=== PATIENT | female | born 1945 | race Caucasian/White ===

== ENCOUNTER 2019-05-25 16:17 | Emergency (ER) | payer MEDICARE ==
--- NOTE | 2019-05-25 17:11 | CT ---
CT BRAIN NONCONTRAST: DATE: 05/25/2019 HISTORY: 73-year-old female status post acute head trauma FINDINGS: There is no evidence of acute intra-axial or extra-axial hemorrhage. There is no midline shift or any other mass effect. There is no extra-axial fluid collection. There is no evidence of obstructive hydrocephalus. Calvarium is intact. IMPRESSION: 1. No acute intracranial findings. 2. Small right frontal scalp contusion. 3. 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 4. Severe osteoarthrosis of right temporomandibular joint.
--- NOTE | 2019-05-25 17:26 | CT ---
CT CERVICAL SPINE: 05/25/19 INDICATIONS: Fall with injury to neck. Postoperative changes noted in the cervical spine. Anterior plate and screws transfix C3, C4, C5 and C6. Interbody implant at C3-4. Interbody fusion at C4-5 and C5-6. Loss of disc space and degenerativ e change at C6-7. Posterior pedicle screws and rods transfix C2 through C6. Images through the lung apices reveal confluent infiltrate in the left lung apex worrisome for pneum onia. Recommend clinical correlation and follow-up. IMPRESSION: 1. Postoperative and degenerative changes of the cervical spine as described. No evidence of cer vical spine fracture. 2. Images through the lung apices show areas of confluent density in the left lung apex worrisom e for confluent pneumonia. Recommend clinical correlation. POS: [facility]
[2019-05-25] MEDS ORDERED: Ibuprofen 200 MG TAB ONE (17:54)
== END 2019-05-25 18:01 | disposition home or self-care (01) ==
LOC: SCSER 16:17
DX: S00.83XA Contusion of other part of head, initial encounter (principal); J44.9 Chronic obstructive pulmonary disease, unspecified; W18.11XA Fall from or off toilet without subsequent striking against object, initial encounter
CPT/HCPCS: 70450; 72125

== ENCOUNTER 2023-05-30 13:13 | Outpatient (CLI) | payer MEDICARE | END 2023-05-30 13:14 | disposition home or self-care (01) | LOC: SCSRAD 13:13 | PROVIDERS: ATTEND Family Medicine | DX: R05.9 Cough, unspecified (principal); R91.1 Solitary pulmonary nodule; J98.4 Other disorders of lung | CPT/HCPCS: 71046 ==

== ENCOUNTER 2023-06-09 14:31 | Outpatient (CLI) | payer MEDICARE | END 2023-06-09 14:32 | disposition home or self-care (01) | LOC: SCSRAD 14:31 | PROVIDERS: ATTEND Nurse Practitioner Family | DX: R05.3 Chronic cough (principal); R91.1 Solitary pulmonary nodule | CPT/HCPCS: 71046 ==

== ENCOUNTER 2023-06-12 14:09 | Inpatient (IN) | payer MEDICARE ==
[~2023-06-12 14:09] MED LIST: Iopamidol 370 76% 100 ML VIAL ONE
[2023-06-12 14:41] LABS: #Monocytes 1.7 thou/uL (0.11-0.59); #Neutrophils 16.7 thou/uL (1.40-6.50); %Basophils 0.2 % (0.0-1.0); %Lymphocytes 8.3 % (21.0-51.0); %Monocytes 8.4 % (0.0-10.0); %Neutrophils 82.6 % (42.0-75.0); Hematocrit 22.6 % (36.0-47.0); Mean Corpuscular Hemoglobin 26.9 pg (27.0-31.0); Mean Corpuscular Volume 86.9 fl (78.0-98.0); Mean Platelet Volume 9.4 fL (7.4-10.4); Platelet Count 441 10x3/uL (130-400); RBC Distribution Width 15.9 % (11.5-14.5); White Blood Cell (WBC) Count 20.3 10x3/uL (4.8-10.8)
[2023-06-12 14:54] LABS: INR-International Normal Ratio 1.1; Prothrombin Time 14.9 sec (12.0-14.7)
[2023-06-12 14:55] LABS: PTT 40.3 sec (22.9-36.1)
[2023-06-12] MEDS ORDERED: Azithromycin 500 MG VIAL ONE (14:58)
[2023-06-12] MEDS ORDERED: cefTRIAXone (ROCEPHIN) 2 GM VIAL ONE (14:58)
[2023-06-12] MEDS ORDERED: Sodium Chloride 0.9% 100 ML ONE (14:58)
[2023-06-12 15:00] LABS: ALT (SGPT) 9 U/L (8-55); AST (SGOT) 13 U/L (5-34); Albumin 3.5 g/dL (3.4-4.8); Alkaline Phosphatase 87 U/L (40-110); Anion Gap 13 mmol/L (10-20); BUN (Urea Nitrogen) 8 mg/dL (9.8-20.1); Bilirubin, Total 0.4 mg/dL (0.2-1.2); Calc. Creatinine Clearance 0 mL/min (70-130); Calcium 8.2 mg/dL (7.8-10.44); Carbon Dioxide 24 mmol/L (23-31); Chloride 98 mmol/L (98-107); Estimated GFR 85; Globulin 2.5 g/dL (2.4-3.5); Glucose 146 mg/dL (83-110); Potassium 4.4 mmol/L (3.5-5.1); Sodium 131 mmol/L (136-145)
[2023-06-12 15:03] LABS: Troponin I 0.035 ng/mL (< 0.028)
[2023-06-12] MEDS ORDERED: predniSONE 20 MG TAB ONE (15:30)
[2023-06-12] MEDS ORDERED: Magnesium 2 GM/50 ML BAG (IN WATER) ONE (15:30)
[2023-06-12] MEDS ORDERED: Ipratropium/Albuterol 3 ML NEB ONE (15:38)
[2023-06-12 15:49] LABS: Bacteria/HPF 1+ HPF (None Seen); Bilirubin Negative (Negative); Blood, Urine 2+ (Negative); CAUTI Indications for Culture Dysuria,urgency,freq; Clarity Extra Turbid (Clear); Glucose, Urine (Dipstick) Normal (Negative); Ketone, Urine Negative (Negative); Leukocyte 25 Leu/uL (Negative); Nitrite Negative (Negative); Protein, Urine (Dipstick) 10 mg/dL (Neg-Trace); RBC/HPF 0-3 HPF (0-3); Specific Gravity, Urine 1.015 (1.002-1.036); Urobilinogen Normal mg/dL (Less than 2)
[2023-06-12 15:50] LABS: Urine Culture Reflex No No
[2023-06-12] MEDS ORDERED: Furosemide 20 MG (2 mL) VIAL ONE (16:13)
[2023-06-12 16:58] LABS: SARS-CoV-2 NAA Rapid Test Not Detected (NotDetected)
[2023-06-12 17:34] LABS: INR-International Normal Ratio 1.1; PTT 36.7 sec (22.9-36.1); Prothrombin Time 14.7 sec (12.0-14.7)
[2023-06-12 17:36] LABS: Lactic Acid 2.8 mmol/L (0.5-2.2)
[2023-06-12] MEDS ORDERED: Senokot S 8.6-50 MG TAB PO PRN (17:40)
[2023-06-12] MEDS ORDERED: Bisacodyl 10 MG SUPP PR PRN (17:40)
[2023-06-12] MEDS ORDERED: Bisacodyl 5 MG TAB PO PRN (17:40)
[2023-06-12] MEDS ORDERED: Acetaminophen 325 MG TAB PO PRN (17:40)
[2023-06-12 17:48] LABS: Troponin I 0.034 ng/mL (< 0.028)
[2023-06-12 19:11] LABS: Iron 9 ug/dL (50-170); Iron Binding Capacity, Total 304 mcg/dL (265-497)
[2023-06-12] MEDS: Albuterol 2.5 MG (3 mL) NEB NEB SCH ×2 (19:49→23:02)
[2023-06-12] MEDS: Mometasone/Formoterol 200/5 60 PUFF INH SCH (19:52)
[2023-06-12 20:03] VITALS: BMI 24.3
[2023-06-12] MEDS: cefTRIAXone\\ROCEPHIN 1 GM in Sodium Chloride 0.9% 100 ML IVPB SCH (20:17)
[2023-06-12] MEDS: Famotidine 20 MG TAB PO SCH (20:17)
[2023-06-12 21:11] LABS: Troponin I 0.028 ng/mL (< 0.028)
[2023-06-12] MEDS: Hydrocortisone Acetate 25 MG Suppository PR SCH (22:19)
[2023-06-12] MEDS: Benzonatate 100 MG CAP PO PRN (22:19)
[2023-06-12] MEDS ORDERED: Furosemide 40 MG (4 mL) VIAL SLOW IVP SCH (23:00)
[2023-06-13] MEDS: Albuterol 2.5 MG (3 mL) NEB NEB SCH ×6 (01:46→23:28)
[2023-06-13 05:00] LABS: #Monocytes 0.9 thou/uL (0.11-0.59); #Neutrophils 8.4 thou/uL (1.40-6.50); %Basophils 0.2 % (0.0-1.0); %Lymphocytes 15.3 % (21.0-51.0); %Monocytes 7.8 % (0.0-10.0); %Neutrophils 76.4 % (42.0-75.0); Hematocrit 24.9 % (36.0-47.0); Hemoglobin 7.8 g/dL (12.0-16.0); Mean Corpuscular HGB CONC 31.3 g/dL (32.0-36.0); Mean Corpuscular Hemoglobin 27.3 pg (27.0-31.0); Mean Corpuscular Volume 87.1 fl (78.0-98.0); Mean Platelet Volume 10.1 fL (7.4-10.4); Platelet Count 396 10x3/uL (130-400); RBC Distribution Width 15.7 % (11.5-14.5); Red Blood Cell (RBC) Count 2.86 mill/uL (4.20-5.40)
[2023-06-13 05:37] LABS: Anion Gap 13 mmol/L (10-20); BUN (Urea Nitrogen) 7 mg/dL (9.8-20.1); Calc. Creatinine Clearance 67 mL/min (70-130); Calcium 8.5 mg/dL (7.8-10.44); Carbon Dioxide 26 mmol/L (23-31); Chloride 101 mmol/L (98-107); Estimated GFR 75; Glucose 130 mg/dL (83-110); Potassium 3.9 mmol/L (3.5-5.1); Sodium 136 mmol/L (136-145)
[2023-06-13] MEDS ORDERED: Furosemide 40 MG (4 mL) VIAL SLOW IVP SCH (06:00)
[2023-06-13] MEDS: Mometasone/Formoterol 200/5 60 PUFF INH SCH ×2 (07:53→19:37)
[2023-06-13] MEDS: Azithromycin 250 MG TAB PO SCH (09:32)
[2023-06-13] MEDS: Famotidine 20 MG TAB PO SCH ×2 (09:32→21:15)
[2023-06-13] MEDS: predniSONE 20 MG TAB PO SCH (09:33)
[2023-06-13] MEDS: Hydrocortisone Acetate 25 MG Suppository PR SCH ×2 (10:43→21:15)
[2023-06-13] MEDS: Gabapentin 300 MG CAP PO SCH ×2 (15:18→21:11)
[2023-06-13] MEDS: Baclofen 10 MG TAB PO SCH ×2 (15:18→21:11)
[2023-06-13] MEDS: DULoxetine 30 MG CAP PO SCH (21:11)
[2023-06-13] MEDS: Aspirin Chewable 81 MG TAB PO SCH (21:11)
[2023-06-13] MEDS: Montelukast Sodium 10 mg Tablet PO SCH (21:11)
[2023-06-13] MEDS: Sotalol HCl 80 MG TAB PO SCH (21:12)
[2023-06-13] MEDS: cefTRIAXone\\ROCEPHIN 1 GM in Sodium Chloride 0.9% 100 ML IVPB SCH (21:14)
[2023-06-13] MEDS: Benzonatate 100 MG CAP PO PRN (21:26)
[2023-06-13] MEDS ORDERED: HYDROcodone/Acetaminophen 10/325 mg Tablet PO PRN (22:08)
[2023-06-13] MEDS ORDERED: Melatonin 3 MG TAB PO PRN (22:09)
[2023-06-13] MEDS ORDERED: Albuterol 2.5 MG (3 mL) NEB ONE (23:09)
[2023-06-14] MEDS: Albuterol 2.5 MG (3 mL) NEB NEB SCH ×6 (01:33→22:53)
[2023-06-14] MEDS: Azelastine 137 MCG/NASAL Spray 30 ML NS SCH ×3 (04:24→22:47)
[2023-06-14 06:08] LABS: #Monocytes 1.2 thou/uL (0.11-0.59); #Neutrophils 8.1 thou/uL (1.40-6.50); %Basophils 0.3 % (0.0-1.0); %Eosinophils 0.2 % (0.0-10.0); %Lymphocytes 19.5 % (21.0-51.0); %Monocytes 10.3 % (0.0-10.0); %Neutrophils 69.4 % (42.0-75.0); Hemoglobin 7.8 g/dL (12.0-16.0); Mean Corpuscular HGB CONC 31.2 g/dL (32.0-36.0); Mean Corpuscular Hemoglobin 26.8 pg (27.0-31.0); Mean Corpuscular Volume 85.9 fl (78.0-98.0); Mean Platelet Volume 9.4 fL (7.4-10.4); Platelet Count 456 10x3/uL (130-400); RBC Distribution Width 15.9 % (11.5-14.5); Red Blood Cell (RBC) Count 2.91 mill/uL (4.20-5.40); White Blood Cell (WBC) Count 11.7 10x3/uL (4.8-10.8)
[2023-06-14 06:36] LABS: Anion Gap 10 mmol/L (10-20); BUN (Urea Nitrogen) 7 mg/dL (9.8-20.1); Calc. Creatinine Clearance 73 mL/min (70-130); Calcium 8.4 mg/dL (7.8-10.44); Carbon Dioxide 27 mmol/L (23-31); Chloride 105 mmol/L (98-107); Estimated GFR 82; Glucose 102 mg/dL (83-110); Potassium 3.9 mmol/L (3.5-5.1); Sodium 138 mmol/L (136-145)
[2023-06-14] MEDS: Azithromycin 250 MG TAB PO SCH (08:05)
[2023-06-14] MEDS: Atorvastatin Calcium 40 MG TAB PO SCH (08:05)
[2023-06-14] MEDS: Gabapentin 300 MG CAP PO SCH ×3 (08:06→22:44)
[2023-06-14] MEDS: Mirabegron ER 25 MG ER.TAB PO SCH (08:06)
[2023-06-14] MEDS: DULoxetine 30 MG CAP PO SCH ×2 (08:06→22:44)
[2023-06-14] MEDS: Cholecalciferol 1,000 UNITS (25 MCG) TAB PO SCH (08:06)
[2023-06-14] MEDS: Multivit, Therapeutic 1 TAB PO SCH (08:06)
[2023-06-14] MEDS: Famotidine 20 MG TAB PO SCH ×2 (08:07→22:44)
[2023-06-14] MEDS: predniSONE 20 MG TAB PO SCH (08:07)
[2023-06-14] MEDS: Loratadine 10 MG TAB PO SCH (08:07)
[2023-06-14] MEDS: Baclofen 10 MG TAB PO SCH ×3 (08:07→22:46)
[2023-06-14] MEDS: Mometasone/Formoterol 200/5 60 PUFF INH SCH ×2 (09:01→18:58)
[2023-06-14] MEDS: Sotalol HCl 80 MG TAB PO SCH ×2 (10:26→22:43)
[2023-06-14] MEDS: Hydrocortisone Acetate 25 MG Suppository PR SCH (10:26)
[2023-06-14] MEDS: Montelukast Sodium 10 mg Tablet PO SCH (22:44)
[2023-06-14] MEDS: cefTRIAXone\\ROCEPHIN 1 GM in Sodium Chloride 0.9% 100 ML IVPB SCH (22:46)
[2023-06-14] MEDS: Aspirin Chewable 81 MG TAB PO SCH (22:46)
[2023-06-15] MEDS: Albuterol 2.5 MG (3 mL) NEB NEB SCH ×6 (02:02→23:39)
[2023-06-15] MEDS: Benzonatate 100 MG CAP PO PRN (02:10)
[2023-06-15 06:13] LABS: #Monocytes 1.3 thou/uL (0.11-0.59); #Neutrophils 8.7 thou/uL (1.40-6.50); %Basophils 0.3 % (0.0-1.0); %Eosinophils 0.2 % (0.0-10.0); %Lymphocytes 21.3 % (21.0-51.0); %Neutrophils 67.7 % (42.0-75.0); Hematocrit 24.1 % (36.0-47.0); Hemoglobin 7.4 g/dL (12.0-16.0); Mean Corpuscular HGB CONC 30.7 g/dL (32.0-36.0); Mean Platelet Volume 9.2 fL (7.4-10.4); Platelet Count 440 10x3/uL (130-400); RBC Distribution Width 15.9 % (11.5-14.5); Red Blood Cell (RBC) Count 2.74 mill/uL (4.20-5.40); White Blood Cell (WBC) Count 12.8 10x3/uL (4.8-10.8)
[2023-06-15 06:43] LABS: Anion Gap 10 mmol/L (10-20); BUN (Urea Nitrogen) 12 mg/dL (9.8-20.1); Calc. Creatinine Clearance 74 mL/min (70-130); Calcium 8.3 mg/dL (7.8-10.44); Carbon Dioxide 27 mmol/L (23-31); Chloride 104 mmol/L (98-107); Estimated GFR 84; Glucose 92 mg/dL (83-110); Potassium 3.5 mmol/L (3.5-5.1); Sodium 137 mmol/L (136-145)
[2023-06-15] MEDS: Mometasone/Formoterol 200/5 60 PUFF INH SCH ×2 (07:42→19:12)
[2023-06-15] MEDS: Mirabegron ER 25 MG ER.TAB PO SCH (08:06)
[2023-06-15] MEDS: Loratadine 10 MG TAB PO SCH (08:07)
[2023-06-15] MEDS: Atorvastatin Calcium 40 MG TAB PO SCH (08:07)
[2023-06-15] MEDS: Famotidine 20 MG TAB PO SCH ×2 (08:07→22:41)
[2023-06-15] MEDS: Multivit, Therapeutic 1 TAB PO SCH (08:07)
[2023-06-15] MEDS: Cholecalciferol 1,000 UNITS (25 MCG) TAB PO SCH (08:07)
[2023-06-15] MEDS: predniSONE 20 MG TAB PO SCH (08:07)
[2023-06-15] MEDS: Azithromycin 250 MG TAB PO SCH (08:07)
[2023-06-15] MEDS: DULoxetine 30 MG CAP PO SCH ×2 (08:07→22:42)
[2023-06-15] MEDS: Baclofen 10 MG TAB PO SCH ×3 (08:07→22:42)
[2023-06-15] MEDS: Gabapentin 300 MG CAP PO SCH ×3 (08:08→22:43)
[2023-06-15] MEDS: Azelastine 137 MCG/NASAL Spray 30 ML NS SCH ×2 (08:08→22:43)
[2023-06-15] MEDS: Sotalol HCl 80 MG TAB PO SCH ×2 (12:08→22:42)
[2023-06-15] MEDS ORDERED: GoLYTELY 4,000 ml Bottle PO SCH (16:00)
[2023-06-15] MEDS: Aspirin Chewable 81 MG TAB PO SCH (22:42)
[2023-06-15] MEDS: Montelukast Sodium 10 mg Tablet PO SCH (22:42)
[2023-06-15] MEDS: cefTRIAXone\\ROCEPHIN 1 GM in Sodium Chloride 0.9% 100 ML IVPB SCH (22:43)
[2023-06-16] MEDS: Albuterol 2.5 MG (3 mL) NEB NEB SCH ×3 (02:22→10:18)
[2023-06-16 06:28] LABS: #Monocytes 1.4 thou/uL (0.11-0.59); %Basophils 0.3 % (0.0-1.0); %Eosinophils 0.3 % (0.0-10.0); %Lymphocytes 28.2 % (21.0-51.0); %Monocytes 11.6 % (0.0-10.0); %Neutrophils 59.3 % (42.0-75.0); Hemoglobin 7.9 g/dL (12.0-16.0); Mean Corpuscular HGB CONC 30.4 g/dL (32.0-36.0); Mean Corpuscular Hemoglobin 26.5 pg (27.0-31.0); Mean Corpuscular Volume 87.2 fl (78.0-98.0); Mean Platelet Volume 9.1 fL (7.4-10.4); Platelet Count 464 10x3/uL (130-400); RBC Distribution Width 15.4 % (11.5-14.5); Red Blood Cell (RBC) Count 2.98 mill/uL (4.20-5.40); White Blood Cell (WBC) Count 11.7 10x3/uL (4.8-10.8)
[2023-06-16] MEDS: Sotalol HCl 80 MG TAB PO SCH (06:45)
[2023-06-16 06:54] LABS: Anion Gap 15 mmol/L (10-20); BUN (Urea Nitrogen) 6 mg/dL (9.8-20.1); Calc. Creatinine Clearance 79 mL/min (70-130); Calcium 8.7 mg/dL (7.8-10.44); Carbon Dioxide 29 mmol/L (23-31); Chloride 102 mmol/L (98-107); Estimated GFR 89; Glucose 89 mg/dL (83-110); Potassium 3.5 mmol/L (3.5-5.1); Sodium 142 mmol/L (136-145)
[2023-06-16] MEDS ORDERED: Famotidine/PF 20 mg/2ml Vial ONE (07:45)
[2023-06-16] MEDS ORDERED: Ipratropium/Albuterol 3 ML NEB ONE (07:45)
[2023-06-16] MEDS: Mometasone/Formoterol 200/5 60 PUFF INH SCH (08:13)
[2023-06-16] MEDS ORDERED: Lidocaine 2% PF 5 ML VIAL ONE (08:16)
[2023-06-16] MEDS ORDERED: PROPOFOL 20 ML ONE (08:16)
[2023-06-16] MEDS ORDERED: Lidocaine 1% PF 5 ML VIAL ONE (08:35)
[2023-06-16] MEDS ORDERED: PROPOFOL 200 MG/20 ML VIAL ONE (08:35)
[2023-06-16] MEDS: Famotidine 20 MG TAB PO SCH (10:24)
[2023-06-16] MEDS: Azithromycin 250 MG TAB PO SCH (10:24)
[2023-06-16] MEDS: Multivit, Therapeutic 1 TAB PO SCH (10:25)
[2023-06-16] MEDS: DULoxetine 30 MG CAP PO SCH (10:25)
[2023-06-16] MEDS: Atorvastatin Calcium 40 MG TAB PO SCH (10:25)
[2023-06-16] MEDS: Cholecalciferol 1,000 UNITS (25 MCG) TAB PO SCH (10:25)
[2023-06-16] MEDS: Baclofen 10 MG TAB PO SCH (10:25)
[2023-06-16] MEDS: Gabapentin 300 MG CAP PO SCH (10:25)
[2023-06-16] MEDS: predniSONE 20 MG TAB PO SCH (10:25)
[2023-06-16] MEDS: Azelastine 137 MCG/NASAL Spray 30 ML NS SCH (10:26)
[2023-06-16] MEDS: Loratadine 10 MG TAB PO SCH (10:26)
[2023-06-16] MEDS: Mirabegron ER 25 MG ER.TAB PO SCH (10:26)
[2023-06-16 11:37] VITALS: BP 118/72; TEMP 97.9
[2023-06-16] MEDS ORDERED: Docusate 100 MG CAP PO SCH (21:00)
[2023-06-17] MEDS ORDERED: Polyethylene Glycol 3350 17 GM Packet PO SCH (09:00)
== END 2023-06-16 15:23 | disposition home or self-care (01) | DRG 871 ==
LOC: ERS 14:09 → 2NO 16:28 → T4-B 06-13 14:10
PROVIDERS: ADMIT Hospitalist; ATTEND Internal Medicine
PROC: 30233N1 Transfusion of Nonautologous Red Blood Cells into Peripheral Vein, Percutaneous Approach (ICD-10-PCS; 2023-06-12)
PROC: 3E03329 Introduction of Other Anti-infective into Peripheral Vein, Percutaneous Approach (ICD-10-PCS; 2023-06-12)
PROC: 0DJD8ZZ Inspection of Lower Intestinal Tract, Via Natural or Artificial Opening Endoscopic (ICD-10-PCS; principal; 2023-06-16)
DX: A41.9 Sepsis, unspecified organism (principal); I50.31 Acute diastolic (congestive) heart failure; J18.9 Pneumonia, unspecified organism; J96.01 Acute respiratory failure with hypoxia; I5A Non-ischemic myocardial injury (non-traumatic); I11.0 Hypertensive heart disease with heart failure; R65.20 Severe sepsis without septic shock; I48.91 Unspecified atrial fibrillation; F17.210 Nicotine dependence, cigarettes, uncomplicated; R91.1 Solitary pulmonary nodule; K64.8 Other hemorrhoids; K57.30 Diverticulosis of large intestine without perforation or abscess without bleeding; D50.9 Iron deficiency anemia, unspecified; Z86.73 Personal history of transient ischemic attack (TIA), and cerebral infarction without residual deficits; Z90.710 Acquired absence of both cervix and uterus; Z90.89 Acquired absence of other organs; Z98.890 Other specified postprocedural states; Z79.01 Long term (current) use of anticoagulants; Z11.52 Encounter for screening for COVID-19
CPT/HCPCS: 36415; 36430; 71045; 71260; 80048; 80053; 81001; 83540; 83550; 83605; 83880; 84484; 85025; 85379; 85610; 85730; 86850; 86900; 86901; 87040; 87086; 93005; 93010; 93306; 94640; 94664; 94760; 96365; 96367; 96375; J0456; J0696; J1940; J2001; J2704; J3475; J3490; J7512; J7611; J7620; P9016; Q9967; S0028

== ENCOUNTER 2025-06-17 11:05 | Outpatient (CLI) | payer MEDICARE | END 2025-06-17 11:06 | disposition home or self-care (01) | LOC: SCSRAD 11:05 | PROVIDERS: ATTEND Nurse Practitioner Family | DX: R05.1 Acute cough (principal) | CPT/HCPCS: 71046 ==